=== PATIENT | male | born 1950 | race Caucasian/White ===

== ENCOUNTER 2019-01-06 01:05 | Emergency (ER) | payer MEDICARE ==
[~2019-01-06] VITALS: Ht 172.7 cm; Wt 75.1 kg
--- NOTE | 2019-01-06 01:33 | NUR ---
CALL LIGHT IN REACH. ERP AT BEDSIDE WHEN LATEST BP TAKEN.
[2019-01-06] MEDS ORDERED: MAALOX/HYOSCYAMINE/LIDOCAINE 45 ML BTL ONE (01:50)
[2019-01-06] MEDS ORDERED: MAALOX/HYOSCYAMINE/LIDOCAINE 45 ML BTL PO ONE (02:00)
[2019-01-06 02:04] LABS: BASOPHILS # (AUTO) 0.02 x10^3/uL (0-0.1); BASOPHILS % (AUTO) 0 % (0-1); EOSINOPHILS # (AUTO) 0.07 x10^3/uL (0-0.4); EOSINOPHILS % (AUTO) 1 % (1-7); LYMPHOCYTES # (AUTO) 1.21 x10^3/uL (1-3.4); LYMPHOCYTES % (AUTO) 25 % (22-44); MD NO; MEAN CORPUSCULAR HEMOGLOBIN 31.6 pg (27.5-34.5); MEAN CORPUSCULAR HGB CONC 33.3 g/dL (33.2-36.2); MONOCYTES # (AUTO) 0.39 x10^3/uL (0.2-0.8); MONOCYTES % (AUTO) 8 % (2-9); NEUTROPHILS # (AUTO) 3.26 x10^3/uL (1.8-6.8); NEUTROPHILS % (AUTO) 66 % (42-75); PLATELET COUNT 215 x10^3/uL (130-400); RED BLOOD COUNT 4.78 x10^6/uL (4.38-5.82); RED CELL DISTRIBUTION WIDTH 14.5 % (9.4-14.8)
[2019-01-06 02:08] LABS: ALANINE AMINOTRANSFERASE 36 U/L (12-78); ANION GAP 7 mmol/L (5-15); CHLORIDE 106 mmol/L (98-107); CREATININE 0.97 mg/dL (0.7-1.3)
[2019-01-06 02:12] LABS: ALKALINE PHOSPHATASE 78 U/L (45-117); BILIRUBIN,TOTAL 0.6 mg/dL (0.2-1.0); TOTAL PROTEIN 7.4 g/dL (6.4-8.2); TROPONIN I < 0.015 ng/mL (0.000-0.045)
--- NOTE | 2019-01-06 02:43 | NUR ---
ROUNDS COMPLETED. CALL LIGHT IN REACH. NO DISTRESS. NO C/O AT THIS TIME.
--- NOTE | 2019-01-06 02:45 | NUR ---
PT CAME TO CT WITH NO IV. PLACE 20G IN LEFT AC FOR EXAM. SENT PT BACK TO ER WITH IV.
[2019-01-06] MEDS ORDERED: OMNIPAQUE 350 MG/ML, 100ML BOTTLE ONE (02:48)
--- NOTE | 2019-01-06 03:22 | NUR ---
IV STARTED BY KNIFER UP.
[2019-01-06 04:56] VITALS: BP 111/57
== END 2019-01-06 04:58 | disposition home or self-care (01) ==
LOC: ED 03:23
DX: K29.00 Acute gastritis without bleeding (principal); I10 Essential (primary) hypertension; E78.5 Hyperlipidemia, unspecified; Z87.891 Personal history of nicotine dependence; Z72.89 Other problems related to lifestyle
CPT/HCPCS: 36415; 71045; 74177; 80053; 83690; 84484; 85025; 93005; 99284; Q9967

== ENCOUNTER 2019-04-23 08:52 | Outpatient (CLI) | payer MEDICARE ==
[2019-04-23 10:06] LABS: ALANINE AMINOTRANSFERASE 30 U/L (12-78); ALBUMIN 4.1 g/dL (3.4-5.0); ANION GAP 7 mmol/L (5-15); CALCIUM 9.2 mg/dL (8.5-10.1); CHLORIDE 104 mmol/L (98-107); CREATININE 1.01 mg/dL (0.7-1.3)
[2019-04-23 10:09] LABS: ALKALINE PHOSPHATASE 95 U/L (45-117); BILIRUBIN,TOTAL 0.5 mg/dL (0.2-1.0); TOTAL PROTEIN 7.9 g/dL (6.4-8.2)
[2019-04-23] MEDS ORDERED: HYDR25TA6 PO (16:00)
[2019-04-23] MEDS ORDERED: PRAV40TA2 PO (16:00)
[2019-04-23] MEDS ORDERED: VARD20TA2 PO (16:00)
== END 2019-04-23 23:59 | disposition home or self-care (01) ==
LOC: STAR 08:52
PROVIDERS: ATTEND Colon & Rectal Surgery
DX: Z01.818 Encounter for other preprocedural examination (principal); K40.20 Bilateral inguinal hernia, without obstruction or gangrene, not specified as recurrent
CPT/HCPCS: 36415; 80053; 93005

== ENCOUNTER 2019-05-06 07:00 | Day surgery (SDC) | payer MEDICARE ==
[~2019-05-06] VITALS: Ht 172.7 cm; Wt 72.7 kg
[~2019-05-06 07:00] MED LIST: BUPIVACAINE/PF-EPI 0.5% 1:200K ONE; HYDR25TA6 PO; PRAV40TA2 PO; VARD20TA2 PO
[2019-05-06] MEDS ORDERED: LACTATED RINGERS 1,000 ML IV SCH (08:00)
[2019-05-06 08:02] VITALS: BP 123/86
[2019-05-06] MEDS ORDERED: FENTANYL PF 100 MCG/2ML ONE ×2 (08:02→10:03)
[2019-05-06] MEDS ORDERED: MIDAZOLAM 1 MG/ML, 2ML ONE (08:03)
[2019-05-06] MEDS ORDERED: GLYCOPYRROLATE 0.2MG/1ML, 5ML ONE (08:28)
[2019-05-06] MEDS ORDERED: CEFAZOLIN 1,000 MG ONE ×2 (08:28→09:23)
[2019-05-06] MEDS ORDERED: ROCURONIUM 10MG/ML,5ML ONE (08:28)
[2019-05-06] MEDS ORDERED: ONDANSETRON 2MG/ML, 2ML ONE (08:28)
[2019-05-06] MEDS ORDERED: SUCCINYLCHOLINE 20 MG/ML, 10ML ONE (08:28)
[2019-05-06] MEDS ORDERED: DEXAMETHASONE 4 MG/ML, 1ML ONE (08:28)
[2019-05-06] MEDS ORDERED: PROPOFOL 10 MG/ML, 20ML ONE (08:28)
[2019-05-06] MEDS ORDERED: NEOSTIGMINE 1 MG/ML, 10ML ONE (08:28)
[2019-05-06] MEDS ORDERED: BUPIVACAINE/PF-EPI 0.5% 1:200K INFIL ONE (08:57)
[2019-05-06] MEDS ORDERED: MEPERIDINE/PF 25MG/ML,1ML IVPush PRN (09:30)
[2019-05-06] MEDS ORDERED: OXYcodone 5 MG/5 ML ORAL.SOL UDC PO PRN (09:30)
[2019-05-06] MEDS ORDERED: ACETAMINOPHEN 325 MG TABLET PO PRN (09:30)
[2019-05-06] MEDS ORDERED: PROMETHAZINE 25 MG/ML, 1ML IV PRN (09:30)
[2019-05-06] MEDS ORDERED: KETOROLAC 30 MG/1 ML IV PRN (09:30)
[2019-05-06] MEDS ORDERED: HYDROmorphone 1 MG/ML, 1ML INJ IVPush PRN (09:30)
[2019-05-06] MEDS ORDERED: MEPERIDINE/PF 25MG/ML,1ML ONE (09:59)
[2019-05-06] MEDS ORDERED: OXYcodone 5 MG/5 ML ORAL.SOL UDC ONE (09:59)
[2019-05-06] MEDS: FENTANYL PF 100 MCG/2ML IV PRN ×2 (10:05→10:13)
== END 2019-05-06 13:10 | disposition home or self-care (01) ==
LOC: OUT 07:00
PROVIDERS: ATTEND Colon & Rectal Surgery
DX: K40.20 Bilateral inguinal hernia, without obstruction or gangrene, not specified as recurrent (principal); K66.0 Peritoneal adhesions (postprocedural) (postinfection); I10 Essential (primary) hypertension; E78.00 Pure hypercholesterolemia, unspecified; Z79.899 Other long term (current) drug therapy; Z87.891 Personal history of nicotine dependence
CPT/HCPCS: 49650; C1727; C1781; J0690; J1100; J2175; J2250; J2405; J2704; J2710; J3010; J0330